=== PATIENT | male | born 1995 ===

== ENCOUNTER → 2024-02-25 | Outpatient (CLI) | payer OTHER | LOC: M SOG 12:24 | PROVIDERS: ATTEND Orthopaedic Surgery Hand Surgery | DX: M79.644 Pain in right finger(s) (principal); S62.664A Nondisplaced fracture of distal phalanx of right ring finger, initial encounter for closed fracture; X58.XXXA Exposure to other specified factors, initial encounter; Y92.9 Unspecified place or not applicable ==